=== PATIENT | female | born 1960 | race Caucasian/White ===

== ENCOUNTER 2025-07-24 10:05 | Outpatient (CLI) | payer BC | END 2025-07-24 10:06 | disposition home or self-care (01) | LOC: CSHWCC 10:05 | PROVIDERS: ATTEND Nurse Practitioner Family | DX: E11.621 Type 2 diabetes mellitus with foot ulcer (principal); L97.511 Non-pressure chronic ulcer of other part of right foot limited to breakdown of skin; I50.22 Chronic systolic (congestive) heart failure | CPT/HCPCS: 11042; 99213; G0463 ==